=== PATIENT | female | born 1965 | race Caucasian/White ===

== ENCOUNTER 2016-04-07 08:27 | Emergency (ER) | payer MEDICARE, MEDICAID ==
[~2016-04-07] VITALS: Ht 162.6 cm; Wt 87.1 kg
[~2016-04-07 08:27] MED LIST: ALPR1TAB2 PO; DOCU-94 PO; GABA300C8 PO; GEMF600T3 PO; HYDR200T36 PO; METF-312 PO; TRAZ150T79 PO
[2016-04-07 09:26] LABS: Basophils # (auto) 0 uL; Basophils % (auto) 0.3 % (0.0-2.0); Eosinophils # (auto) 0.2 uL; Hemoglobin 13.1 g/dL (12.2-16.2); Lymphocytes # (auto) 1.2 uL; Lymphocytes % (auto) 13.5 % (10.0-50.0); Mean Corpuscular Hemoglobin 29.8 pg (28.0-32.0); Mean Corpuscular Hgb Conc. 32.7 g/dL (32.0-36.0); Mean Corpuscular Volume 91.1 fL (80.0-100.0); Mean Platelet Volume 8.7 fL (7.4-10.4); Monocytes # (auto) 0.7 uL; Monocytes % (auto) 7.8 % (0.0-12.0); Neutrophils # (auto) 6.9 uL; Neutrophils % (auto) 76.4 % (37.0-80.0); Platelet Count (auto) 236 10^3/uL (140-450); Red Cell Distribution Width 12.7 % (11.6-16.0); SUSPECT VIEW TRANSMISSION
[2016-04-07 09:40] LABS: BUN/Creatinine Ratio 28.8; Bilirubin, Total 0.4 mg/dL (0.2-1.0); Calcium 8.8 mg/dL (8.5-10.1); Magnesium 2.4 mg/dL (1.6-2.6); Potassium 4.4 mmol/L (3.5-5.1); Total Protein 7.5 g/dL (6.4-8.2)
[2016-04-07] MEDS ORDERED: KETOROLAC TROMETH 30 MG/ML 1ML VIAL IV ONE ×2 (10:00→14:15)
[2016-04-07] MEDS ORDERED: ONDANSETRON HCL 4 MG/2 ML VIAL IV ONE ×2 (10:00→14:15)
[2016-04-07] MEDS ORDERED: HYDROmorphone HCL 2 MG/ML VL IV ONE ×2 (10:00→14:15)
[2016-04-07 14:42] VITALS: BP 113/71
== END 2016-04-07 16:24 | disposition home or self-care (01) ==
LOC: ER 08:29
DX: M54.12 Radiculopathy, cervical region (principal); M79.7 Fibromyalgia; E11.9 Type 2 diabetes mellitus without complications; E78.5 Hyperlipidemia, unspecified; I10 Essential (primary) hypertension; G89.29 Other chronic pain; M54.5 Low back pain
CPT/HCPCS: 36415; 71020; 72125; 73030; 80053; 83735; 84484; 85025; 93005; 96374; 96375; 96376; 99285; J1170; J1885; J2405

== ENCOUNTER 2016-08-14 10:09 | Emergency (ER) | payer MEDICARE, MEDICAID ==
[~2016-08-14] VITALS: Ht 162.6 cm; Wt 87.1 kg
[~2016-08-14 10:09] MED LIST changes: +GABA-497 PO; -GABA300C8 PO; -METF-312 PO; +METF-370 PO
[2016-08-14 11:22] LABS: Basophils # (auto) 0 uL; Basophils % (auto) 0.7 % (0.0-2.0); Eosinophils # (auto) 0.1 uL; Eosinophils % (auto) 1.1 % (0.0-7.0); Hematocrit 38.9 % (36.0-46.0); Hemoglobin 13.4 g/dL (12.2-16.2); Lymphocytes # (auto) 2.2 uL; Lymphocytes % (auto) 30.9 % (10.0-50.0); Mean Corpuscular Hemoglobin 31.7 pg (28.0-32.0); Mean Corpuscular Hgb Conc. 34.4 g/dL (32.0-36.0); Mean Corpuscular Volume 92.1 fL (80.0-100.0); Monocytes # (auto) 0.8 uL; Monocytes % (auto) 11.6 % (0.0-12.0); Neutrophils % (auto) 55.7 % (37.0-80.0); Platelet Count (auto) 292 10^3/uL (140-450); Red Cell Distribution Width 13.2 % (11.6-16.0); White Blood Cell 7.1 10^3/uL (4.4-10.8)
[2016-08-14 11:40] LABS: BUN/Creatinine Ratio 24.5; Calcium 8.7 mg/dL (8.5-10.1)
[2016-08-14 11:42] LABS: Urine Bilirubin Negative (Negative); Urine Blood Negative /uL (Negative); Urine Color Yellow (Yellow); Urine Glucose Normal (Normal); Urine Ketone Negative (Negative); Urine Nitrite Negative (Negative); Urine RBC 3 /hpf (0 - 4); Urine Squamous Epithelial Cell FEW /hpf (<5); Urine Urobilinogen Normal (Negative); Urine pH 5.5 (5.0-8.0)
[2016-08-14 11:43] LABS: Albumin 3.9 g/dL (3.4-5.0); Bilirubin, Total 0.4 mg/dL (0.2-1.0); Total Protein 7.6 g/dL (6.4-8.2)
[2016-08-14] MEDS ORDERED: methylPREDNISolone SOD SUCC 125 MG/2 ML VL IM ONE (12:15)
[2016-08-14] MEDS ORDERED: LORazepam 0.5 MG TAB PO ONE (13:15)
[2016-08-14 13:51] VITALS: BP 112/61
== END 2016-08-14 14:18 | disposition home or self-care (01) ==
LOC: ER 10:09
DX: M79.7 Fibromyalgia (principal); R51 Headache; E11.9 Type 2 diabetes mellitus without complications; E78.5 Hyperlipidemia, unspecified; I10 Essential (primary) hypertension; Z90.710 Acquired absence of both cervix and uterus; Z98.51 Tubal ligation status; Z88.6 Allergy status to analgesic agent; Z79.899 Other long term (current) drug therapy
CPT/HCPCS: 36415; 80053; 81001; 85025; 96372; 99284; J2930

== ENCOUNTER 2019-10-09 15:54 | Emergency (ER) | payer MEDICARE, MEDICAID ==
[~2019-10-09] VITALS: Ht 162.6 cm; Wt 99.8 kg
[~2019-10-09 15:54] MED LIST changes: -GABA-497 PO; +GABA300C10 PO; -GEMF600T3 PO; +GEMF600T7 PO; -TRAZ150T79 PO; +TRAZ1TAB12 PO
[2019-10-09 21:06] LABS: Basophils # (auto) 0 10 ^3/uL (0-0.2); Basophils % (auto) 0.1 % (0.0-2.0); Eosinophils # (auto) 0 10 ^3/uL (0-0.8); Hematocrit 39.4 % (36.0-46.0); Mean Corpuscular Hemoglobin 31.2 pg (28.0-32.0); Mean Corpuscular Hgb Conc. 32.9 g/dL (32.0-36.0); Mean Corpuscular Volume 94.8 fL (80.0-100.0); Monocytes # (auto) 0.9 10 ^3/uL (0-1.3); Monocytes % (auto) 10.4 % (0.0-12.0); Neutrophils # (auto) 7.1 10 ^3/uL (1.6-8.6); Neutrophils % (auto) 78.5 % (37.0-80.0); Nucleated Red Blood Cells % 0.4 %; Platelet Count (auto) 233 10^3/uL (140-450); Red Blood Cells 4.15 10^6/uL (4.0-5.20); Red Cell Distribution Width 13.2 % (11.8-14.3); White Blood Cell 9.1 10^3/uL (4.4-10.8)
[2019-10-09 21:32] LABS: Albumin 3.8 g/dL (3.4-5.0); Calcium 9.1 mg/dL (8.5-10.1); Potassium 4.1 mmol/L (3.5-5.1)
[2019-10-09 21:35] LABS: BUN/Creatinine Ratio 15.6; Bilirubin, Total 0.8 mg/dL (0.2-1.0); Total Protein 7.4 g/dL (6.4-8.2)
[2019-10-10 00:36] VITALS: BP 122/81
[2019-10-10 00:56] LABS: Urine Amorphous Crystal FEW /hpf (None Seen); Urine Bacteria FEW /hpf (None Seen); Urine Blood 1+ /uL (Negative); Urine Mucus FEW (None Seen); Urine Specific Gravity 1.013 (1.001-1.035); Urine WBC 1 /hpf (0 - 5)
[2019-10-10] MEDS ORDERED: ONDANSETRON ODT 4 MG TAB PO ONE ×2 (01:05→01:15)
== END 2019-10-10 01:06 | disposition home or self-care (01) ==
LOC: EDBD 15:54 → ER 15:54
DX: E11.40 Type 2 diabetes mellitus with diabetic neuropathy, unspecified (principal); F41.9 Anxiety disorder, unspecified; I12.9 Hypertensive chronic kidney disease with stage 1 through stage 4 chronic kidney disease, or unspecified chronic kidney disease; E11.22 Type 2 diabetes mellitus with diabetic chronic kidney disease; N18.9 Chronic kidney disease, unspecified; Z90.49 Acquired absence of other specified parts of digestive tract; Z20.828 Contact with and (suspected) exposure to other viral communicable diseases; Z98.51 Tubal ligation status
CPT/HCPCS: 36415; 80053; 81001; 85025; 93005; 99284; Q0162; U0003